=== PATIENT | female | born 1950 | race Caucasian/White ===

== ENCOUNTER 2024-04-08 15:26 | Emergency (ER) | payer OTHER, SELFPAY ==
[2024-04-08 15:47] VITALS: BP 123/76
[2024-04-08] MEDS: TORADOL 15 MG IV (16:48)
[2024-04-08] MEDS: VALIUM 2 MG PO (16:48)
[2024-04-08 16:59] LABS: % Basophils 1.1 % (0-2); % Eosinophils 2.1 % (0-6); % Immature Granulocytes 0.1 % (0-0.5); % Lymphocytes 29.7 % (20.5-51.1); % Monocytes 9.8 % (1.7-9.3); % Neutrophils 57.2 % (42.2-75.2); Absolute Basophils 0.1 10^3/uL (0-0.2); Absolute Eosinophils 0.2 10^3/uL (0-0.7); Absolute Lymphocytes 2.2 10^3/uL (1.2-3.4); Absolute Monocytes 0.7 10^3/uL (0.1-0.6); Absolute Neutrophils 4.3 10^3/uL (1.4-6.5); Hematocrit 43.8 % (37.0-47.0); Hemoglobin 14.9 g/dL (12.0-16.0); Mean Corpuscular Hgb 29.7 pg (27.0-31.0); Mean Corpuscular Volume 87.4 fL (81.0-99.0); Mean Platelet Volume 10.3 fL (7.4-10.4); Nucleated Red Blood Cells % 0 %; Platelet Count 281 10^3/uL (130-400); Red Blood Cell Count 5.01 10^6/uL (4.20-5.40); Red Cell Dist. Width 12.9 % (11.5-14.5); White Blood Cell Count 7.5 10^3/uL (4.8-10.8)
--- NOTE | 2024-04-08 17:13 | ED.GENMED ---
History of Present Illness
<Otoniel Genao Jr., PA-C - Last Filed: 04/09/24 09:51>
General
Chief Complaint: Back Pain
Source: patient and family
Exam Limitations: none
Time Seen by Provider: 04/08/24 16:18
Nursing documentation reviewed up to this point in time: agreed with
Travel History
Have you had any contact with someone who has COVID-19?: No
Do you have any symptoms of coronavirus? Fever > 100 degrees, chills, cough, shortness of breath, sore throat, loss of taste or smell, muscle aches, or headache?: No
History of Present Illness
History of Present Illness:
73-year-old female past medical history of hypertension hyperlipidemia and GERD presenting to the emergency department today with concerns of left low back discomfort has been intermittent over the past few weeks but worsening over the past day or
so. She does have a history of kidney stones this feels somewhat different somewhat worse with different positions but she claims that this is not consistent either denies significant urinary symptoms nausea vomiting diarrhea.
Past History
<Otoniel Genao Jr., PA-C - Last Filed: 04/09/24 09:51>
Past History
ED Past Medical History: GERD and Hypercholesterolemia
ED Past Surgical History: Orthopedic (Bilateral knee replacement)
Social History
Tobacco: Non-smoker
Alcohol: None
Living: alone
Review of Systems
<BOBO Leahy Jr. Last Filed: 04/09/24 09:51>
Review of Systems
Allergies reviewed?: Yes
All Other Systems: ROS reviewed and negative except as documented in HPI and ROS
Phy Exam
<BOBO Leahy Jr. Last Filed: 04/09/24 09:51>
Physical Exam
Physical Exam:
GENERAL: Alert , in no apparent distress
EYE: pupils equal and reactive
NECK: Supple, no significant adenopathy.
ENT: o/p clr, mmm.
CARDIAC: Regular rate and rhythm .
LUNGS: Clear breath sounds bilaterally, no acute respiratory distress, no wheezes/rales/rhonchi
ABDOMEN: Soft, without focal tenderness, no r/g, no cvat
NEUROLOGICAL: Alert and oriented, no focal neuro deficits
SKIN: Warm and dry, skin intact.
MUSCULOSKELETAL: Tenderness palpation to the left low back no midline pain no redness or warmth no edema, well perfused.
PSYCH: Normal and appropriate interaction.
Course
<Otoniel Genao Jr., BOBO - Last Filed: 04/09/24 09:51>
Orders/Labs/Results
Orders:
Orders
04/08/24 16:32
CT Abd/pel Without Iv Or Oral Urgent
Comment:
Reason For Exam: left flank pain
Diazepam [Valium] 2 mg PO NOW STA
Ketorolac [Toradol] 15 mg IV NOW STA
04/08/24 16:51
Complete Blood Count/With Diff Urgent
Comprehensive Metabolic Panel Urgent
04/08/24 19:29
Urinalysis Reflex To Culture Urgent
Date Specimen was Collected: 04/08/24
Time Specimen was Collected: 19:27
Urine Microscopic Reflex Cult Urgent
Urine Culture Urgent
GERTRUDE Source: U
Specimen Description:
Date Specimen was Collected: 04/08/24
Time Specimen was Collected: 19:27
Abnormal Lab Results
04/08/24 04/08/24
16:51 19:29
Absolute Monos (auto) 0.7 H 10^3/uL
(0.1-0.6)
Monocytes % 9.8 H %
(1.7-9.3)
Glucose 111 H mg/dl
(70-99)
Urine Ketones Trace A
(Negative)
Leukocyte Esterase Rfl Trace A
(Negative)
Urine Bacteria (Reflex) Many A
(Negative)
04/08/24 16:51
04/08/24 16:51
Vital Signs
Initial and Last Documented VS:
Initial Vital Signs
Temp Pulse Resp BP Pulse Ox
98.4 F 78 18 123/76 98
04/08/24 15:47 04/08/24 15:47 04/08/24 15:47 04/08/24 15:47 04/08/24 15:47
Last Documented Vital Signs
Temp Pulse Resp BP Pulse Ox
98.4 F 78 18 123/76 98
04/08/24 15:47 04/08/24 15:47 04/08/24 15:47 04/08/24 15:47 04/08/24 15:47
<Fariha Carbajal, PUBLIC HEALTH DIETITIAN - Last Filed: 04/09/24 18:55>
Orders/Labs/Results
Orders:
Orders
04/08/24 16:32
CT Abd/pel Without Iv Or Oral Urgent
Comment:
Reason For Exam: left flank pain
Diazepam [Valium] 2 mg PO NOW STA
Ketorolac [Toradol] 15 mg IV NOW STA
04/08/24 16:51
Complete Blood Count/With Diff Urgent
Comprehensive Metabolic Panel Urgent
04/08/24 19:29
Urinalysis Reflex To Culture Urgent
Date Specimen was Collected: 04/08/24
Time Specimen was Collected: 19:27
Urine Microscopic Reflex Cult Urgent
Urine Culture Urgent
GERTRUDE Source: U
Specimen Description:
Date Specimen was Collected: 04/08/24
Time Specimen was Collected: 19:27
Abnormal Lab Results
04/08/24 04/08/24
16:51 19:29
Absolute Monos (auto) 0.7 H 10^3/uL
(0.1-0.6)
Monocytes % 9.8 H %
(1.7-9.3)
Glucose 111 H mg/dl
(70-99)
Urine Ketones Trace A
(Negative)
Leukocyte Esterase Rfl Trace A
(Negative)
Urine Bacteria (Reflex) Many A
(Negative)
04/08/24 16:51
04/08/24 16:51
Vital Signs
Initial and Last Documented VS:
Initial Vital Signs
Temp Pulse Resp BP Pulse Ox
98.4 F 78 18 123/76 98
04/08/24 15:47 04/08/24 15:47 04/08/24 15:47 04/08/24 15:47 04/08/24 15:47
Last Documented Vital Signs
Temp Pulse Resp BP Pulse Ox
98.4 F 78 18 123/76 98
04/08/24 15:47 04/08/24 15:47 04/08/24 15:47 04/08/24 15:47 04/08/24 15:47
<Otoniel Genao Jr., PA-C - Last Filed: 04/09/24 09:51>
MDM/Problems Addressed
MDM/Problems Addressed:
73-year-old female presenting to the emergency department today with concerns of low back pain intermittently over the past few weeks but worsening over the past few days. No additional associated symptoms. Normal vital signs upon arrival labs
obtained unremarkable. Mildly reproducible pain to the left low back but at the lumbar paraspinal muscles no midline pain mild CVA tenderness due to the patient's advanced age plan for CT scan for further assessment of any intra-abdominal or kidney
stone
<Fariha Carbajal NP - Last Filed: 04/09/24 18:55>
MDM/Problems Addressed
MDM/Problems Addressed:
73-year-old female presenting to the emergency department today with concerns of low back pain intermittently over the past few weeks but worsening over the past few days. No additional associated symptoms. Normal vital signs upon arrival labs
obtained unremarkable. Mildly reproducible pain to the left low back but at the lumbar paraspinal muscles no midline pain mild CVA tenderness due to the patient's advanced age plan for CT scan for further assessment of any intra-abdominal or kidney
stone
7:49 PM
CAT scan abdomen pelvis without IV or oral contrast report just received:
IMPRESSION:
1. Mild diverticulitis of the descending colon in the left mid abdomen.
2. Appendix within normal limits.
3. No free fluid or fluid collection. No free air.
4. Unenhanced solid organs grossly unremarkable. Simple cyst in each kidney. Fatty infiltration of the pancreas.
5. Probable atelectasis in the right lung base posteriorly. New in the interval since the previous CT. Prior chest CT described possible impacted or dilated bronchi in the right upper lobe with follow-up repeat chest CT recommended in 6-12 months.
This area could be reevaluated at the time of repeat chest CT per previous recommendations.
Pt OOB, point tender left lower back, ambulating well. Exam is consistent with musculoskeletal low back pain and this was explained to pt and daughter.
Diverticulitis is most likely an incidental finding, as she has no symptoms. Explained CT result to pt and daughter at bedside. Rx for Augmentin sent to her pharmacy
Two completely separate issues.
<Otoniel Genao Jr., PA-C - Last Filed: 04/09/24 09:51>
*Critical Care Note
Total Time (30-74mins, 75-104mins- exclusive of procedures): Not Applicable
ED Attending Note
<Otoniel Genao Jr., PA-C - Last Filed: 04/09/24 09:51>
-
Portions of this chart may have been created with voice recognition software.� Occasional wrong word or��sound alike� substitutions may have occurred due to the inherent limitations of voice recognition software.
Discharge Plan
Departure
Patient Disposition: Home (Routine Discharge)
Date of Disposition: 04/08/24
Time of Disposition: 19:50
Patient with high blood pressure during this ER visit?: No
Condition: Good
Discharge Problem:
Diverticulitis large intestine, Low back pain
Instructions: Diverticulitis (DC), Low Back Pain (DC)
Prescriptions:
New
amoxicillin-pot clavulanate 875-125 mg tablet
1 tab PO BID Qty: 14 0RF
Referrals:
[place] MD [Active] - Call in 1-3 days for appt
Henry Bustillo CRNP [Family Provider] -
Activity Restrictions/Additional Instructions:
As we discussed, follow up with your primary care provided in 7-10 days.
I have provided you with a GI doctor to see if your primary provider wants you to see him.
I sent a prescription to your pharmacy for Augmentin to take twice daily for 7 days.
Interventions
Interventions:
*Risk Screen - Suicide Last Done: 04/08/24 20:05
*General Assessment Last Done: 04/08/24 16:56
*Neglect/Abuse Screening Last Done: 04/08/24 20:05
*Nursing Disposition Last Done: 04/08/24 20:05
ED-Musculoskeletal Assessment Last Done: 04/08/24 16:29
Discharge Date and Time
Discharge Date/Time: 04/08/24 20:05
Print Language: [email or web address]
[2024-04-08 17:15] LABS: ALT (SGPT) 17 U/L (0-35); AST (SGOT) 26 U/L (14-36); Albumin 4.1 g/dl (3.5-5.0); Alkaline Phosphatase 70 U/L (38-126); Blood Urea Nitrogen 16 mg/dl (7-17); Calcium 9.9 mg/dl (8.4-10.2); Carbon Dioxide 22 mmol/L (22-30); Chloride 106 mmol/L (98-107); Glucose 111 mg/dl (70-99); Sodium 138 mmol/L (135-145); Total Bilirubin 0.7 mg/dl (0.2-1.3); Total Protein 6.6 g/dl (6.3-8.2); eGFR > 60.00
[2024-04-08 19:38] LABS: Urine Albumin Negative (Neg - Trace); Urine Bilirubin Negative (Negative); Urine Character Clear (Clear); Urine Color Yellow; Urine Glucose Negative (Negative); Urine Ketone Trace (Negative); Urine Leukocyte Trace (Negative); Urine Nitrite Negative (Negative); Urine Occult Blood Negative (Negative); Urine Specific Gravity 1.015 (<1.030); Urine Urobilinogen Negative (Neg - 1+)
[2024-04-08 20:03] LABS: Urine Squamous Cell 0-2 /LPF (Few)
[2024-04-08 20:04] LABS: Urine Bacteria Many (Negative); Urine Mucus Many; Urine Red Blood Cell 0-2 /HPF (0-2); Urine White Cell 0-2 /HPF (0-5)
[2024-04-08 20:05] LABS: Urine Granular Cast 0-2 /LPF (0)
== END 2024-04-08 20:05 | disposition home or self-care (01) ==
LOC: EMR 15:26
PROVIDERS: Physician Assistant; EMERGENCY PHYSICIAN Emergency Medicine; FAMILY PHYSICIAN Nurse Practitioner Family
DX: K57.32 Diverticulitis of large intestine without perforation or abscess without bleeding (principal); M54.50 Low back pain, unspecified; N28.1 Cyst of kidney, acquired; K21.9 Gastro-esophageal reflux disease without esophagitis; I10 Essential (primary) hypertension; E78.00 Pure hypercholesterolemia, unspecified; F32.A Depression, unspecified; G43.909 Migraine, unspecified, not intractable, without status migrainosus; Z96.653 Presence of artificial knee joint, bilateral; Z87.442 Personal history of urinary calculi
CPT/HCPCS: 99284; 96374; 74176; 80053; 81003; 81015; 85025; 87086

== ENCOUNTER → 2024-04-10 12:52 | Outpatient (REF) | payer OTHER, SELFPAY | LOC: MRI 3T 12:52 | PROVIDERS: ATTENDING PHYSICIAN Specialist; FAMILY PHYSICIAN Nurse Practitioner Family | DX: M25.551 Pain in right hip (principal) | CPT/HCPCS: 72148; 73721 ==

== ENCOUNTER → 2025-01-07 13:41 | Outpatient (REF) | payer OTHER, SELFPAY | LOC: HWWDC 13:41 | PROVIDERS: ATTENDING PHYSICIAN Nurse Practitioner Family | DX: Z12.31 Encounter for screening mammogram for malignant neoplasm of breast (principal); R91.1 Solitary pulmonary nodule | CPT/HCPCS: 71250 ==

== ENCOUNTER → 2025-03-25 09:47 | Outpatient (REF) | payer OTHER, SELFPAY | LOC: MRI 09:47 | PROVIDERS: ATTENDING PHYSICIAN Otolaryngology; FAMILY PHYSICIAN Nurse Practitioner Family | DX: J32.0 Chronic maxillary sinusitis (principal); R51.9 Headache, unspecified | CPT/HCPCS: 70553; A9575 ==